=== PATIENT | female | born 1945 | race Caucasian/White ===

== ENCOUNTER 2024-06-14 12:46 | Outpatient (CLI) | payer MEDICARE, OTHER | END 2024-06-14 12:47 | disposition home or self-care (01) | LOC: CSHRAD 12:46 | PROVIDERS: ATTEND Internal Medicine Rheumatology | DX: M25.531 Pain in right wrist (principal); M25.532 Pain in left wrist; M25.541 Pain in joints of right hand; M25.542 Pain in joints of left hand; M19.032 Primary osteoarthritis, left wrist; M19.031 Primary osteoarthritis, right wrist; M19.042 Primary osteoarthritis, left hand; M19.041 Primary osteoarthritis, right hand ==